=== PATIENT | female | born 1975 | race American Indian/Alaskan Native ===

== ENCOUNTER 2016-12-23 16:11 | Emergency (ER) | payer OTHER ==
[2016-12-23 16:11] VITALS: BMI 21.8
[2016-12-23 16:17] VITALS: BP 144/99; PULSE 51; RESP 18; TEMP 97.9; O2SAT 98
== END 2016-12-23 17:03 | disposition left against medical advice (07) ==
LOC: C.ER 16:11
DX: R10.2 Pelvic and perineal pain (principal); Z02.9 Encounter for administrative examinations, unspecified

== ENCOUNTER 2018-05-19 10:19 | Emergency (ER) | payer OTHER ==
[2018-05-19 10:19] VITALS: BMI 21.8
[2018-05-19 10:32] VITALS: TEMP 98.2; O2SAT 100
[2018-05-19 11:18] LABS: HCG,QUALITATIVE URINE NEGATIVE (NEGATIVE)
[2018-05-19 11:23] LABS: SQUAMOUS EPITHIAL 1 /hpf (0-5); URINE BILIRUBIN NEGATIVE (NEGATIVE); URINE BLOOD 1+ (NEGATIVE); URINE CLARITY Clear (Clear); URINE COLOR Yellow (YELLOW); URINE GLUCOSE (UA) NORMAL (Normal); URINE LEUKOCYTE ESTERASE 1+ Leu/uL (Negative); URINE PROTEIN NEGATIVE (NEGATIVE); URINE UROBILINOGEN NORMAL mg/dL (0.2-1.0)
[2018-05-19 11:52] LABS: EOS # 0.2 K/uL (0.0-0.7); EOS % 3.5 % (0.0-4.0); HEMOGLOBIN 12.5 g/dL (11.0-16.0); LYMPH # 1.9 K/uL (1.0-4.3); LYMPH % 41.8 % (20.0-40.0); MEAN CELL VOLUME 88.5 fL (81.0-99.0); MEAN CORPUSCULAR HEMOGLOBIN 29.4 pg (27.0-31.0); MEAN CORPUSCULAR HGB CONC 33.3 g/dL (33.0-37.0); MEAN PLATELET VOLUME 8.1 fL (7.2-11.7); MONO # 0.4 K/uL (0.0-0.8); MONO % 8.8 % (0.0-10.0); NEUT # 2.1 K/uL (1.8-7.0); NEUT % 44.9 % (50.0-75.0); NRBC % 0.1 % (0.0-2.0); RBC 4.24 Mil/uL (3.80-5.20); WHITE BLOOD COUNT 4.6 K/uL (4.8-10.8)
[2018-05-19 12:15] LABS: ALB/GLOB RATIO 1.3 (1.0-2.1); ALT/SGPT 24 U/L (9-52); AST/SGOT 15 U/L (14-36); BLOOD UREA NITROGEN 13 mg/dL (7-17); CALCIUM 9.6 mg/dl (8.6-10.4); GFR NON-AFRICAN AMERICAN > 60
[2018-05-19] MEDS ORDERED: Iohexol 240 (50 ml) PO STA (12:23)
--- NOTE | 2018-05-19 12:33 | C.PDOC ---
History Of Present Illness 43 y/o female presents to ED with complaints of left low abdominal pain since yesterday associated with swelling today. Patient reports that the pain is worsened with movement. Denies fever, chills, nausea, vomiting, diarrhea or rash. Time Seen by Provider: 05/19/18 11:09 Chief Complaint (Nursing): Abdominal Pain History Per: Patient History/Exam Limitations: no limitations Onset/Duration Of Symptoms: Days Current Symptoms Are (Timing): Still Present Past Medical History Reviewed: Historical Data, Nursing Documentation, Vital Signs Vital Signs: Last Vital Signs Temp 98.2 F 05/19/18 10:31 Pulse 55 L 05/19/18 15:27 Resp 18 05/19/18 15:27 BP 110/52 L 05/19/18 15:27 Pulse Ox 100 05/19/18 15:27 - Medical History PMH: No Chronic Diseases Surgical History: Appendectomy - [facility] Procedures REMOV INTRALUM VAG FB (04/13/13) Family History: States: No Known Family Hx - Social History Hx Tobacco Use: Yes Hx Alcohol Use: No Hx Substance Use: No - Immunization History Hx Tetanus Toxoid Vaccination: No Hx Influenza Vaccination: No Hx Pneumococcal Vaccination: No Review Of Systems Constitutional: Negative for: Fever, Chills Gastrointestinal: Positive for: Abdominal Pain. Negative for: Nausea, Vomiting , Diarrhea Skin: Negative for: Rash Physical Exam - Physical Exam Appears: Non-toxic, No Acute Distress Skin: Warm, Dry, No Rash Head: Atraumatic, Normacephalic Eye(s): bilateral: Normal Inspection Oral Mucosa: Moist Neck: Normal ROM, Supple Cardiovascular: Rhythm Regular, No Friction Rub, No Murmur Respiratory: Normal Breath Sounds, No Rales, No Rhonchi, No Wheezing Gastrointestinal/Abdominal: Soft, No Guarding, No Rebound, Hernia (left inguinal ) Back: No CVA Tenderness Neurological/Psych: Oriented x3, Normal Speech, Normal Cognition, Normal Motor, Normal Sensation Gait: Steady ED Course And Treatment - Laboratory Results Result Diagrams: 05/19/18 11:34 05/19/18 11:34 O2 Sat by Pulse Oximetry: 100 (RA) Pulse Ox Interpretation: Normal Medical Decision Making Medical Decision Making: CT scan shows no hernia, possible cellulitis of the soft tissue. Will treat with antibiotics. On re-exam, the patient reports improvement. Ambulatory in the ED with steady gait. Lungs are CTA, heart is RRR, abdomen is soft, non- tender and the patient is tolerating PO well. Follow up with the medical doctor within 1-2 days, return if worsened. Disposition - Disposition Referrals: Nicole Villagran MD [Staff Provider] - Disposition: HOME/ ROUTINE Disposition Time: 15:18 Condition: STABLE Additional Instructions: Follow up with the medical doctor within 1-2 days. Return if worsened. 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 - Scribe Statement The provider has reviewed the documentation as recorded by the Shirley Quintana All medical record entries made by the Shirley were at my direction and personally dictated by me. I have reviewed the chart and agree that the record accurately reflects my personal performance of the history, physical exam, medical decision making, and the department course for this patient. I have also personally directed, reviewed, and agree with the discharge instructions and disposition.
[2018-05-19] MEDS ORDERED: Iohexol 240 (50 ml) ONE (12:40)
[2018-05-19 12:47] VITALS: RESP 18
[2018-05-19 12:57] LABS: LIPASE 20 U/L (23-300)
[2018-05-19] MEDS ORDERED: Iodixanol 320 MG/ML 100 ML BOTTLE IV ONE (14:18)
--- NOTE | 2018-05-19 14:39 | CT ---
Date of service: 05/19/2018 PROCEDURE: CT Abdomen and Pelvis with contrast HISTORY: Left inguinal swel and pain, r/o incarcer hernia COMPARISON: None. TECHNIQUE: Contrast dose: 100 mL Visipaque 320 Radiation dose: Total exam DLP = 669 mGy-cm. This CT exam was performed using one or more of the following dose reduction techniques: Automated exposure control, adjustment of the mA and/or kV according to patient size, and/or use of iterative reconstruction technique. FINDINGS: LOWER THORAX: Unremarkable. LIVER: Unremarkable. No gross lesion or ductal dilatation. GALLBLADDER AND BILE DUCTS: Unremarkable. PANCREAS: Unremarkable. No gross lesion or ductal dilatation. SPLEEN: Unremarkable. ADRENALS: Unremarkable. No mass. KIDNEYS AND URETERS: Unremarkable. No hydronephrosis. No solid mass. VASCULATURE: Unremarkable. No aortic aneurysm. BOWEL: Unremarkable. No obstruction. No gross mural thickening. APPENDIX: No findings to suggest acute appendicitis. PERITONEUM: Left inguinal region soft tissue stranding. No free fluid. No free air. LYMPH NODES: Prominent left inguinal region lymph nodes. BLADDER: Unremarkable. REPRODUCTIVE: Trace pelvic fluid, likely physiologic. BONES: No acute fracture. OTHER FINDINGS: None. IMPRESSION: Left inguinal region cellulitis no with prominent reactive lymph nodes. No evidence of hernia.
[2018-05-19 15:28] VITALS: BP 110/52; PULSE 55
== END 2018-05-19 15:28 | disposition home or self-care (01) ==
LOC: C.ER 10:19
DX: L03.311 Cellulitis of abdominal wall (principal)
CPT/HCPCS: 74177; 80053; 81001; 83690; 84703; 85025; 96374; 96375; 99284; J1885; J2405; Q9966; Q9967

== ENCOUNTER 2018-08-03 09:24 | Emergency (ER) | payer OTHER ==
[2018-08-03 09:24] VITALS: BMI 21.8
[2018-08-03] MEDS ORDERED: Sodium Chloride 0.9% 1,000 ML IV ONE (09:43)
[2018-08-03 09:57] LABS: BASO # 0.1 K/uL (0.0-0.2); BASO % 1.3 % (0.0-2.0); EOS # 0.2 K/uL (0.0-0.7); EOS % 3.1 % (0.0-4.0); HEMOGLOBIN 12.3 g/dL (11.0-16.0); LYMPH # 1.8 K/uL (1.0-4.3); LYMPH % 29.7 % (20.0-40.0); MEAN CORPUSCULAR HEMOGLOBIN 29.5 pg (27.0-31.0); MEAN CORPUSCULAR HGB CONC 32.8 g/dL (33.0-37.0); MEAN PLATELET VOLUME 8.4 fL (7.2-11.7); MONO # 0.6 K/uL (0.0-0.8); MONO % 9.3 % (0.0-10.0); NEUT # 3.5 K/uL (1.8-7.0); NEUT % 56.6 % (50.0-75.0); NRBC % 0.1 % (0.0-2.0); RBC 4.15 Mil/uL (3.80-5.20); RED CELL DISTRIBUTION WIDTH 14.4 % (11.5-14.5); WHITE BLOOD COUNT 6.1 K/uL (4.8-10.8)
--- NOTE | 2018-08-03 10:12 | C.PDOC ---
History Of Present Illness 43 year old female with PMHx of uterine fibroids presents to the ED complaining of left sided abdominal pain for 3 days. Denies any nausea, vomiting, diarrhea, hematuria, dysuria, fever, chills, or any other symptoms. Time Seen by Provider: 08/03/18 09:30 Chief Complaint (Nursing): Abdominal Pain History Per: Patient History/Exam Limitations: no limitations Onset/Duration Of Symptoms: Days (3) Current Symptoms Are (Timing): Still Present Associated Symptoms: denies: Fever, Nausea, Vomiting, Diarrhea, Constipation Past Medical History Reviewed: Historical Data, Nursing Documentation, Vital Signs Vital Signs: Last Vital Signs Temp 97.6 F 08/03/18 09:38 Pulse 53 L 08/03/18 09:38 Resp 16 08/03/18 09:38 BP 114/58 L 08/03/18 09:38 Pulse Ox 99 08/03/18 09:38 - Medical History PMH: No Chronic Diseases Other PMH: uterine fibroids Surgical History: Appendectomy - [facility] Procedures REMOV INTRALUM VAG FB (04/13/13) Family History: States: No Known Family Hx - Social History Hx Tobacco Use: Yes Hx Alcohol Use: No Hx Substance Use: No - Immunization History Hx Tetanus Toxoid Vaccination: No Hx Influenza Vaccination: No Hx Pneumococcal Vaccination: No Review Of Systems Except As Marked, All Systems Reviewed And Found Negative. Constitutional: Negative for: Fever, Chills Gastrointestinal: Positive for: Abdominal Pain (left sided). Negative for: Nausea, Vomiting, Diarrhea Genitourinary: Negative for: Dysuria, Hematuria Physical Exam - Physical Exam Appears: Non-toxic Skin: Warm, Dry, No Rash Head: Atraumatic, Normacephalic Eye(s): bilateral: Normal Inspection Nose: Normal Oral Mucosa: Moist Neck: Normal ROM, Supple Chest: Symmetrical Cardiovascular: Rhythm Regular Respiratory: Normal Breath Sounds Gastrointestinal/Abdominal: Soft, Tenderness (left sided abdominal tenderness), No Distention, No Guarding, No Rebound Back: No CVA Tenderness Extremity: Normal ROM Extremity: Bilateral: Normal Color And Temperature, Normal ROM Neurological/Psych: Oriented x3, Normal Speech Gait: Steady ED Course And Treatment - Laboratory Results Result Diagrams: 08/03/18 09:54 08/03/18 09:54 Lab Interpretation: Normal Urine POC: Negative O2 Sat by Pulse Oximetry: 99 (RA) Pulse Ox Interpretation: Normal - CT Scan/US No standard instances Other Rad Studies (CT/US): Read By Radiologist, Radiology Report Reviewed CT/US Interpretation: FINDINGS: There is limited evaluation of the solid organs without the administration of IV contrast. LOWER THORAX: No visible consolidation, pleural effusion, or pneumothorax. LIVER: Unremarkable unenhanced appearance. GALLBLADDER AND BILE DUCTS: Unremarkable unenhanced appearance. PANCREAS: Unremarkable unenhanced appearance. SPLEEN: Unremarkable unenhanced appearance. ADRENALS: Unremarkable unenhanced appearance. KIDNEYS AND URETERS: No hydronephrosis or obstructing renal calculus. BLADDER: The urinary bladder appears unremarkable. REPRODUCTIVE: Uterus is present. Probable right ovarian cyst. APPENDIX: The appendix is not identified. Surgical clips are noted at the level of the cecum. Correlate for history of appendectomy. BOWEL: The stomach is nondistended. Lack of oral contrast limits evaluation for bowel pathology. The bowel loops appear within normal limits of caliber without evidence of intestinal obstruction. Moderate constipation. PERITONEUM: Small pelvic free fluid. No definite free air. LYMPH NODES: No bulky lymphadenopathy identified. VASCULATURE: Atherosclerotic calcification of the aorta. No aortic aneurysm. BONES: No acute osseous abnormality is detected. OTHER FINDINGS: None. IMPRESSION: Moderate constipation. Probable right ovarian cyst. Pelvic ultrasound may be considered. Small pelvic free fluid. Progress Note: Treated with IVF NSS and toradol 30 mg IV. On re-evaluation abdomen soft non-tender Reassessment Condition: Improved Medical Decision Making Medical Decision Making: Plan - CT abd/pel - Bloodwork - IV fluids - UA Disposition Counseled Patient/Family Regarding: Studies Performed, Diagnosis, Need For Followup - Disposition Disposition: HOSPITALIZED Disposition Time: 13:20 Condition: STABLE Additional Instructions: Follow up with clinic or PMD for further evaluation Prescriptions: Naproxen [Naprosyn] 1 tab PO BID PRN #25 tab PRN Reason: Pain Instructions: Acute Abdomen (Belly Pain), Nausea and Vomiting, Adult (DC) Forms: [facility] (Kiswahili) - POA Present On Arrival: None - Clinical Impression Clinical Impression: Abdominal pain, Ovarian cyst - 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 - Scribe Statement The provider has reviewed the documentation as recorded by the Shirley Conroy All medical record entries made by the Cemibirma were at my direction and personally dictated by me. I have reviewed the chart and agree that the record accurately reflects my personal performance of the history, physical exam, medical decision making, and the department course for this patient. I have also personally directed, reviewed, and agree with the discharge instructions and disposition.
[2018-08-03 10:33] LABS: SQUAMOUS EPITHIAL 1 /hpf (0-5); URINE BACTERIA RARE (<OCC); URINE BILIRUBIN NEGATIVE (NEGATIVE); URINE BLOOD 1+ (NEGATIVE); URINE CLARITY Clear (Clear); URINE COLOR Yellow (YELLOW); URINE GLUCOSE (UA) NORMAL (Normal); URINE LEUKOCYTE ESTERASE 1+ Leu/uL (Negative); URINE PROTEIN NEGATIVE (NEGATIVE); URINE UROBILINOGEN NORMAL mg/dL (0.2-1.0)
[2018-08-03 10:34] LABS: HCG,QUALITATIVE URINE NEGATIVE (NEGATIVE)
[2018-08-03 11:03] LABS: BLOOD UREA NITROGEN 11 mg/dL (7-17); GFR NON-AFRICAN AMERICAN > 60
[2018-08-03 11:10] LABS: CALCIUM 8.9 mg/dl (8.6-10.4)
[2018-08-03 11:11] LABS: ALB/GLOB RATIO 1.3 (1.0-2.1); ALBUMIN 4.3 g/dL (3.5-5.0); AST/SGOT 31 U/L (14-36); LIPASE 25 U/L (23-300)
[2018-08-03 11:29] LABS: ALT/SGPT < 6 U/L (9-52)
--- NOTE | 2018-08-03 13:10 | CT ---
PROCEDURE: CT Abdomen and Pelvis without Oral or IV contrast. HISTORY: Pain COMPARISON: None available. TECHNIQUE: Contiguous axial images of the abdomen and pelvis. No oral or IV contrast administered. Coronal and Sagittal reformats generated and reviewed. Radiation dose: Total exam DLP = 580.85 mGy-cm. This CT exam was performed using one or more of the following dose reduction techniques: Automated exposure control, adjustment of the mA and/or kV according to patient size, and/or use of iterative reconstruction technique. FINDINGS: There is limited evaluation of the solid organs without the administration of IV contrast. LOWER THORAX: No visible consolidation, pleural effusion, or pneumothorax. LIVER: Unremarkable unenhanced appearance. GALLBLADDER AND BILE DUCTS: Unremarkable unenhanced appearance. PANCREAS: Unremarkable unenhanced appearance. SPLEEN: Unremarkable unenhanced appearance. ADRENALS: Unremarkable unenhanced appearance. KIDNEYS AND URETERS: No hydronephrosis or obstructing renal calculus. BLADDER: The urinary bladder appears unremarkable. REPRODUCTIVE: Uterus is present. Probable right ovarian cyst. APPENDIX: The appendix is not identified. Surgical clips are noted at the level of the cecum. Correlate for history of appendectomy. BOWEL: The stomach is nondistended. Lack of oral contrast limits evaluation for bowel pathology. The bowel loops appear within normal limits of caliber without evidence of intestinal obstruction. Moderate constipation. PERITONEUM: Small pelvic free fluid. No definite free air. LYMPH NODES: No bulky lymphadenopathy identified. VASCULATURE: Atherosclerotic calcification of the aorta. No aortic aneurysm. BONES: No acute osseous abnormality is detected. OTHER FINDINGS: None. IMPRESSION: Moderate constipation. Probable right ovarian cyst. Pelvic ultrasound may be considered. Small pelvic free fluid.
[2018-08-03 13:53] VITALS: BP 109/66; PULSE 55; RESP 18; TEMP 97.7
[2018-08-03 15:23] VITALS: O2SAT 99
== END 2018-08-03 13:52 | disposition home or self-care (01) ==
LOC: C.ER 09:24
DX: R10.9 Unspecified abdominal pain (principal); N83.209 Unspecified ovarian cyst, unspecified side; D25.9 Leiomyoma of uterus, unspecified
CPT/HCPCS: 74176; 80053; 81001; 83690; 84703; 85025; 96374; 99285; J1885